=== PATIENT | female | born 1990 | race Caucasian/White ===

== ENCOUNTER → 2017-01-02 | Outpatient (CLI) | payer MEDICAID | LOC: BRMIMAGING 13:57 | PROVIDERS: ATTEND Registered Nurse | DX: R07.0 Pain in throat (principal) ==

== ENCOUNTER → 2017-02-19 | Outpatient (CLI) | payer MEDICAID | LOC: BRMIMAGING 08:36 | PROVIDERS: ATTEND Registered Nurse | DX: R10.9 Unspecified abdominal pain (principal); R16.0 Hepatomegaly, not elsewhere classified | CPT/HCPCS: 76700-PO ==

== ENCOUNTER → 2017-09-24 | Outpatient (CLI) | payer MEDICAID | LOC: BRMIMAGING 10:19 | PROVIDERS: ATTEND Registered Nurse | DX: M25.511 Pain in right shoulder (principal); M54.2 Cervicalgia | CPT/HCPCS: 72050-PO; 73030-PO ==